=== PATIENT | male | born 1945 | race Caucasian/White ===

== ENCOUNTER 2017-03-06 09:43 | Observation (INO) | payer MEDICARE, BC ==
[2017-03-06] MEDS ORDERED: METOPROLOL TARTRATE 5 MG/5 ML SOL IV ONE ×3 (10:01→10:31)
[2017-03-06 10:05] LABS: BASOPHILS % (AUTO) 1 % (0-3); EOSINOPHILS % (AUTO) 3 % (0-9); HEMATOCRIT 51 % (39-53); MEAN CORPUSCULAR HGB CONC 33.6 gm/dl (32.0-36.0); MEAN CORPUSCULAR VOLUME 86 fL (80-100); MONOCYTES % (AUTO) 11.6 % (0-12); NEUTROPHILS % (AUTO) 53.5 % (37-80)
[2017-03-06] MEDS: METOPROLOL TARTRATE 5 MG/5 ML SOL IV SCH ×3 (10:06→10:30)
[2017-03-06] MEDS ORDERED: SODIUM CHLORIDE 0.9% 1000ML 1,000 ML IV ONE (10:10)
[2017-03-06 10:26] LABS: CALCIUM 8.8 mg/dl (8.5-10.1); GLOM FILT RATE 83 mL/min (>60); POTASSIUM 4.2 mMol/L (3.5-5.1); SODIUM 141 mMol/L (136-145)
[2017-03-06] MEDS ORDERED: METOPROLOL TARTRATE 25 MG TAB ONE ×2 (10:40→10:59)
[2017-03-06] MEDS ORDERED: METOPROLOL TARTRATE 25 MG TAB PO ONE ×2 (10:44→10:58)
[2017-03-06] MEDS ORDERED: METOPROLOL TARTRATE 50 MG TAB PO SCH (10:45)
[2017-03-06] MEDS ORDERED: DILTIAZEM 5 MG/ML SOL IV ONE (12:38)
[2017-03-06] MEDS: ASPIRIN 325 MG TAB PO SCH ×2 (14:38→14:39)
[2017-03-06 17:37] VITALS: RESP 16
[2017-03-06 23:18] VITALS: O2SAT 96
[2017-03-07] MEDS ORDERED: SODIUM CHLORIDE 0.9% FLUSH 10 ML SOL IV SCH (06:00)
[2017-03-07] MEDS ORDERED: INFLUENZA HIGH DOSE VACCINE 0.5 ML SUS IM ONE (08:03)
[2017-03-07] MEDS ORDERED: PNEUMOCOCCAL VACCINE 0.5 ML SOL IM ONE (08:04)
[2017-03-07 08:09] LABS: BASOPHILS % (AUTO) 1 % (0-3); EOSINOPHILS % (AUTO) 5 % (0-9); HEMATOCRIT 41 % (39-53); MEAN CORPUSCULAR HGB CONC 34.5 gm/dl (32.0-36.0); MEAN CORPUSCULAR VOLUME 87 fL (80-100); MONOCYTES % (AUTO) 10.9 % (0-12); NEUTROPHILS % (AUTO) 54.5 % (37-80)
[2017-03-07 08:31] LABS: CALCIUM 7.9 mg/dl (8.5-10.1); GLOM FILT RATE 94 mL/min (>60); HDL CHOLESTEROL 93 mg/dl (40-60); LDL CHOLESTEROL,CALCULATED 44.6 mg/dl (50-130); POTASSIUM 4.1 mMol/L (3.5-5.1); SODIUM 141 mMol/L (136-145)
[2017-03-07 09:05] VITALS: BP 126/78; PULSE 56; TEMP 98.1
[2017-03-07] MEDS: ASPIRIN 325 MG TAB PO SCH (09:16)
== END 2017-03-07 09:20 | disposition home or self-care (01) | DRG 310 ==
LOC: ED 09:43 → UNDOADMOB 11:31 → ACUTE CARE 11:31
PROVIDERS: ADMIT Family Medicine; ATTEND Family Medicine
DX: I48.91 Unspecified atrial fibrillation (principal)
CPT/HCPCS: 36415; 80048; 80061; 84443; 84484; 85025; 85610; 85730; 90662; 90732; 93005; 93012; 99285; G0008

== ENCOUNTER 2017-04-19 03:21 | Observation (INO) | payer MEDICARE, BC ==
[2017-04-19 04:00] LABS: BASOPHILS % (AUTO) 2 % (0-3); EOSINOPHILS % (AUTO) 5 % (0-9); HEMATOCRIT 45 % (39-53); MEAN CORPUSCULAR HGB CONC 36.1 gm/dl (32.0-36.0); MEAN CORPUSCULAR VOLUME 84 fL (80-100); MONOCYTES % (AUTO) 10.1 % (0-12); NEUTROPHILS % (AUTO) 49.3 % (37-80)
[2017-04-19] MEDS ORDERED: METOPROLOL TARTRATE 5 MG/5 ML SOL IV ONE ×7 (04:02→14:45)
[2017-04-19 04:11] LABS: CALCIUM 8.9 mg/dl (8.5-10.1); GLOM FILT RATE 95 mL/min (>60); MAGNESIUM 1.8 mg/dl (1.8-2.4); SODIUM 136 mMol/L (136-145)
[2017-04-19] MEDS ORDERED: MAGNESIUM SULFATE 5 GM/10 ML SOL IV ONE ×2 (04:13→14:48)
[2017-04-19] MEDS ORDERED: MAGNESIUM SULFATE 5 GM/10 ML SOL ONE (04:18)
[2017-04-19] MEDS ORDERED: AMIODARONE 50 MG/ML SOL IVP ONE (04:45)
[2017-04-19] MEDS ORDERED: AMIODARONE 50 MG/ML SOL ONE ×2 (04:51→05:20)
[2017-04-19] MEDS ORDERED: ENOXAPARIN 60 MG SOL SC SCH (05:15)
[2017-04-19] MEDS ORDERED: AMIODARONE 50 MG/ML 450 MG in DEXTROSE 250 ML 250 ML IV ONE (05:16)
[2017-04-19] MEDS ORDERED: AMIODARONE 50 MG/ML 600 MG in DEXTROSE 250 ML 250 ML IV ONE (11:15)
[2017-04-19] MEDS: SODIUM CHLORIDE 0.9% FLUSH 10 ML SOL IV SCH (15:15)
[2017-04-19] MEDS: ENOXAPARIN 80 MG SOL SC SCH (18:38)
[2017-04-20 00:16] VITALS: RESP 16
[2017-04-20] MEDS: SODIUM CHLORIDE 0.9% FLUSH 10 ML SOL IV SCH ×2 (01:15→07:23)
[2017-04-20] MEDS: ENOXAPARIN 80 MG SOL SC SCH (07:19)
[2017-04-20 08:46] VITALS: BP 130/87; PULSE 65; TEMP 96.6; O2SAT 97
== END 2017-04-20 10:25 | disposition home or self-care (01) | DRG 310 ==
LOC: ED 03:21 → ACUTE CARE 04:58
PROVIDERS: ADMIT Surgery Surgical Critical Care; ATTEND Surgery Surgical Critical Care
DX: I48.91 Unspecified atrial fibrillation (principal)
CPT/HCPCS: 71010; 80048; 83735; 84484; 85025; 93005; 93012; 94762; 99070; 99285; J0282; J1650; J3475

== ENCOUNTER 2018-12-07 09:02 | Outpatient (CLI) | payer MEDICARE, BC ==
[2017-04-20 08:46] VITALS: O2SAT 97
== END 2018-12-07 09:03 | disposition home or self-care (01) | DRG 310 ==
LOC: CONVCARE 09:02
PROVIDERS: ATTEND Internal Medicine Cardiovascular Disease
DX: I48.92 Unspecified atrial flutter (principal)
CPT/HCPCS: 93005